=== PATIENT | male | born 1975 | race African-American/Black ===

== ENCOUNTER 2021-10-06 09:54 | Emergency (ER) | payer SELFPAY ==
[~2021-10-06] VITALS: Ht 177.8 cm; Wt 83.1 kg
[2021-10-06] MEDS ORDERED: BACITRACIN ZIN1 EACH TOP (11:43)
[2021-10-06] MEDS ORDERED: DOXYCYCLINE HY100 MG PO (11:43)
== END 2021-10-06 12:02 | disposition home or self-care (01) ==
LOC: FSED 10:10
DX: T23.202A Burn of second degree of left hand, unspecified site, initial encounter (principal); X17.XXXA Contact with hot engines, machinery and tools, initial encounter; Y93.89 Activity, other specified; Y99.0 Civilian activity done for income or pay
CPT/HCPCS: 99283